=== PATIENT | female | born 1990 | race Caucasian/White ===

== ENCOUNTER 2018-05-11 04:06 | Inpatient (IN) | payer MEDICAID ==
[2018-05-11] VITALS (11 sets, daily range): BP systolic 91–120; BP diastolic 56–78
[~2018-05-11] VITALS: Ht 160 cm; Wt 70.5 kg
--- NOTE | 2018-05-11 04:51 | NUR ---
YOANNA MIRAMONTES presented to unit via ambulatory from ED, accompanied by s.o., with c/o INDUCTION. YOANNA MIRAMONTES weighed, gowned, voided, and to bed. EFHM and TOCO applied, VS taken. YOANNA MIRAMONTES oriented to bed controls, call light, TV, heat, and A/C controls.
--- OUTSIDE RECORDS SUMMARY | 2018-05-11 04:53 | XMS REPORT ---
Author Author CELESTINO MOLINA Organization [facility] Address [address] [place] [address] Care Team Providers Care Children'S Librarian Name Role Phone CELESTINO MOLINA Unavailable PROBLEMS Unknown Problems ALLERGIES No Information ENCOUNTERS Encounter Location Date Diagnosis [facility] [address] [facility] [id number] [address] Sep, [facility] [id number], [place] [address] Aug, High-risk sexual behavior Z72.51 ; Vaginal discharge N89.8 and Positive urine test Z32.01 [facility] [id number], [place] [address] Oct, Vaginal discharge N89.8 IMMUNIZATIONS No Known Immunizations SOCIAL HISTORY Never Assessed REASON FOR VISIT PLAN OF CARE VITAL SIGNS MEDICATIONS Unknown Medications RESULTS No Results PROCEDURES No Known procedures INSTRUCTIONS MEDICATIONS ADMINISTERED No Known Medications MEDICAL (GENERAL) HISTORY Type Description Date Surgical History lrt leg surgery
--- OUTSIDE RECORDS SUMMARY | 2018-05-11 04:54 | XMS REPORT ---
Author Author CELESTINO MOLINA Organization [facility] Address [address] [place] [address] Care Team Providers Care Risk Modeler Name Role Phone CELESTINO MOLINA Unavailable PROBLEMS Unknown Problems ALLERGIES Substance Reaction Event Type Date Status Penicillin G Sodium hives Drug Allergy Aug, Active ENCOUNTERS Encounter Location Date Diagnosis [facility] [address] [facility] [id number] [address] Sep, [facility] [address] [facility] [id number] [place] [address] Aug, High-risk sexual behavior Z72.51 ; Vaginal discharge N89.8 and Positive urine test Z32.01 [facility] [address] [facility] [id number] [place] [address] Oct, Vaginal discharge N89.8 IMMUNIZATIONS No Known Immunizations SOCIAL HISTORY Never Assessed REASON FOR VISIT Yeast infection, possible / wanting a test , patient would like to be check for Std's today _ _ rolly elizabeth PLAN OF CARE Activity Details Follow Up prn Reason: VITAL SIGNS Height 5'3" in 2017-09-09 Weight 133.0 lbs 2017-09-09 Temperature 98.0 degrees Fahrenheit 2017-09-09 Heart Rate 70 bpm 2017-09-09 Respiratory Rate 18 2017-09-09 BMI 23.56 kg/m2 2017-09-09 Blood pressure systolic 116 mmHg 2017-09-09 Blood pressure diastolic 70 mmHg 2017-09-09 MEDICATIONS Unknown Medications RESULTS No Results PROCEDURES Procedure Date Ordered Result Body Site Bacterial Vaginosis In House September 09, 2017 TRICHOMONAS ASSAY W/OPTIC September 09, 2017 No Charge September 09, 2017 CULTURE, BACTERIA, OTHER September 09, 2017 URINE TEST September 09, 2017 INSTRUCTIONS MEDICATIONS ADMINISTERED No Known Medications MEDICAL (GENERAL) HISTORY Type Description Date Surgical History lrt leg surgery
--- OUTSIDE RECORDS SUMMARY | 2018-05-11 04:54 | XMS REPORT ---
Author Author DOM CHICAS Organization [facility] Address [address] [place] [address] Care Team Providers Care Road Gang Supervisor Name Role Phone DOM CHICAS Unavailable PROBLEMS Unknown Problems ALLERGIES Substance Reaction Event Type Date Status Penicillin G Sodium hives Drug Allergy Oct, Active ENCOUNTERS Encounter Location Date Diagnosis [facility] [address] [facility] [id number] [address] Oct, Vaginal discharge N89.8 IMMUNIZATIONS No Known Immunizations SOCIAL HISTORY Never Assessed REASON FOR VISIT Vaginal discharge (yellow ) with itching x 1 month -- rolly elizabeth PLAN OF CARE Activity Details Follow Up prn, PCP Reason: VITAL SIGNS Height 5'3" in 2016-11-19 Weight 125.0 lbs 2016-11-19 Temperature 97.0 degrees Fahrenheit 2016-11-19 BMI 22.14 kg/m2 2016-11-19 Blood pressure systolic 120 mmHg 2016-11-19 Blood pressure diastolic 76 mmHg 2016-11-19 MEDICATIONS No Known Medications RESULTS Name Result Date Reference Range CULTURE, GENITAL 2016-11-19 Genital Culture, Routine Final report Result 1 TRICHOMONAS (IN HOUSE) 2016-11-19 TRICHOMONAS negative Control + Lot # [id number] Exp date 11/2017 BACTERIAL VAGINOSIS (IN HOUSE) 2016-11-19 RESULTS negative Control + Lot # [id number] Exp date 04/2017 GC/CHLAM PROBE (STATE) 2016-11-19 CHLAMYDIA negative GC negative PROCEDURES Procedure Date Ordered Result Body Site CULTURE, BACTERIA, OTHER Nov 19, 2016 TRICHOMONAS ASSAY W/OPTIC Nov 19, 2016 No Charge Nov 19, 2016 Bacterial Vaginosis In House Nov 19, 2016 INSTRUCTIONS MEDICATIONS ADMINISTERED No Known Medications MEDICAL (GENERAL) HISTORY Type Description Date Surgical History lrt leg surgery
[2018-05-11] MEDS ORDERED: D5 LR IV SOLUTION 1,000 ML IV SCH (05:00)
[2018-05-11] MEDS ORDERED: MINERAL OIL CONCENTRATE 99.9% 15 ML UDC TOP PRN (05:00)
[2018-05-11] MEDS ORDERED: PREN-142 PO (05:14)
[2018-05-11 05:22] LABS: BASOPHILS % (AUTO) 0 % (0-10); EOSINOPHILS # (AUTO) 0.2 10^3/uL (0.0-0.3); EOSINOPHILS % (AUTO) 2 % (0-10); HEMATOCRIT 35 % (35-52); LYMPHOCYTES # (AUTO) 1.8 X 10^3 (1.0-4.0); LYMPHOCYTES % (AUTO) 19 % (12-44); MEAN CORPUSCULAR HEMOGLOBIN 29 PG (25-34); MEAN CORPUSCULAR HGB CONC 34 G/DL (32-36); MEAN CORPUSCULAR VOLUME 85 FL (80-99); MEAN PLATELET VOLUME 10.1 FL (7.4-10.4); MONOCYTES # (AUTO) 0.6 X 10^3 (0.0-1.0); MONOCYTES % (AUTO) 7 % (0-12); NEUTROPHILS # (AUTO) 6.7 X 10^3 (1.8-7.8); NEUTROPHILS % (AUTO) 72 % (42-75); PLATELET COUNT 269 10^3/uL (130-400); RED CELL DISTRIBUTION WIDTH 13.5 % (10.0-14.5); WHITE BLOOD COUNT 9.3 10^3/uL (4.3-11.0)
[2018-05-11] MEDS ORDERED: ceFAZolin 2 GM IV Premixed 50 ML IV SCH (05:30)
[2018-05-11] MEDS ORDERED: OXYTOCIN/NORMAL SALINE 500 ML IV ONE (05:50)
[2018-05-11] MEDS ORDERED: OXYTOCIN/NORMAL SALINE 500 ML IV SCH ×2 (05:53→08:12)
--- NOTE | 2018-05-11 05:53 | NUR ---
Dr. العلي called per Sara Ramirez RN for IOL orders.
[2018-05-11] MEDS ORDERED: CLINDAMYCIN 900 MG/50 ML IVPB 50 ML IV SCH (06:00)
[2018-05-11] MEDS ORDERED: CATHETER FLUSH 10 ML SYR IV SCH ×2 (06:00→14:00)
--- NOTE | 2018-05-11 07:15 | NUR ---
report from production supervisor off shift RN. 0720 to bedside patient awake, lights on , s/o at bedside. reports pain with contractions. reviewed protocol for preparation for epidural placement.
--- NOTE | 2018-05-11 07:15 | History & Physical-OB ---
OB - Chief Complaint & HPI Date/Time Date of Admission: Date of Admission: May 11, 2018 at 04:49 Date seen by a Provider: May 11, 2018 Time Seen by a Provider: 07:05 Chief Complaint/History OB-Reason for Admission/Chief: Induction of Labor (Induction of labor at 39 weeks) Hx : 4 Hx Para: 3 Expected Date of Delivery: May 18, 2018 Gestational Age in Weeks: 39 Gestational Age in Days: 0 Allergies and Home Medications Allergies Coded Allergies: Penicillins (Verified Allergy, Unknown, HIVES, 05/11/18) Home Medications Vit No.124/Iron/FA 1 Each Tablet, 1 EACH PO DAILY, (Reported) Patient Home Medication List Home Medication List Reviewed: Yes OB - History Hx of Present Care: Yes Ultrasounds: Normal mid trimester US Obstetrical Complications: Other (GBS Positive) Medical Complications: None Delivery History Adverse Rxn to Tranfusion: No Patient Past Medical History See H & P Social History/Family History Alcohol Use: Denies Use Recreational Drug Use: Yes OB - Admission Exam Physical Exam Vitals: Vital Signs 05/11/18 06:33 Temp 98.2 Pulse 79 Resp 18 B/P (MAP) 106/68 (81) O2 Delivery Room Air HEENT: EOMI Heart: Rhythm Normal Lungs: Clear, Equal Abdomen: Non tender Extremities: Edema (Trace edema of lower extremities) Reflexes: Normal Cervical Dilatation: 4cm Effacement: Other (60%) Station: -2 Membranes: Intact Amniotic Fluid: Clear Heart Rate: 140's Accelerations: Accelerations Present Decelerations: Early Decelerations (rare) Short Term Variability: Present Peanut Butter Maker Variability: Average (6-25) Contractions on Admission: < 5 Minutes Apart Intensity: Moderate French Scoring Tool (Modified) Dilation (cm): 3-4cm (2) Effacement (%): 51-79% (2) Descent/Station: -2 (1) Cervix Consistency: Medium(1) Cervix Position: Middle/Mid-Position (1) Labs Laboratory Tests Test 05/11/18 05:10 Range/Units White Blood Count 9.3 4.3-11.0 10^3/uL Red Blood Count 4.13 L 4.35-5.85 10^6/uL Hemoglobin 12.0 11.5-16.0 G/DL Hematocrit 35 35-52 % Mean Corpuscular Volume 85 80-99 FL Mean Corpuscular Hemoglobin 29 25-34 PG Mean Corpuscular Hemoglobin Concent 34 32-36 G/DL Red Cell Distribution Width 13.5 10.0-14.5 % Platelet Count 269 130-400 10^3/uL Mean Platelet Volume 10.1 7.4-10.4 FL Neutrophils (%) (Auto) 72 42-75 % Lymphocytes (%) (Auto) 19 12-44 % Monocytes (%) (Auto) 7 0-12 % Eosinophils (%) (Auto) 2 0-10 % Basophils (%) (Auto) 0 0-10 % Neutrophils # (Auto) 6.7 1.8-7.8 X 10^3 Lymphocytes # (Auto) 1.8 1.0-4.0 X 10^3 Monocytes # (Auto) 0.6 0.0-1.0 X 10^3 Eosinophils # (Auto) 0.2 0.0-0.3 10^3/uL Basophils # (Auto) 0.0 0.0-0.1 10^3/uL OB - Assessment/Plan/Diagnosis Assessment Assessment: group B positive strep, induction of labor Admission Dx Intrauterine at 39 weeks GBS Positive Admission Status: Inpatient Order (span 2 midnights) Reason for Inpatient Admission: Pitocin Induction of Labor Plan Plan: Induction Induction Method: per Pitocin Protocol Other Plan Start Cleocin IV for GBS prophylaxis LIZZ SIDDIQUI DO May 11, 2018 07:15
[2018-05-11] MEDS ORDERED: LACTATED RINGERS 1,000 ML IV ONE (07:19)
[2018-05-11] MEDS ORDERED: FLU QUADRIvalent (5+ YOA) 2018-2019 (AFLURIA) 0.5 ML IM ONE (07:45)
[2018-05-11] MEDS ORDERED: fentaNYL INJECTION 100 MCG/2 ML AMP ONE (07:51)
[2018-05-11] MEDS ORDERED: BUPIVACAINE 0.25% 30 ML (SENSORCAINE) VIAL ONE (07:51)
[2018-05-11] MEDS ORDERED: HYDROcodone/APAP 5 MG/325 MG (LORTAB) TAB PO PRN (08:15)
[2018-05-11] MEDS ORDERED: BENZOCAINE/MENTHOL (DERMOPLAST) 56 ML CAN TP PRN (08:15)
[2018-05-11] MEDS ORDERED: WITCH HAZEL(TUCKS) 40 EA JAR TOP PRN (08:15)
[2018-05-11] MEDS ORDERED: MEASLES,MUMPS,RUBELLA 1 EA INJ SQ ONE (08:15)
[2018-05-11] MEDS ORDERED: DIBUCAINE (NUPERCAINAL) 1% OINT 30 GM TOP PRN (08:15)
[2018-05-11] MEDS ORDERED: TETANUS,DIPTH,PERTUSS P/F (BOOSTRIX) 0.5 ML VIAL IM ONE (08:15)
--- NOTE | 2018-05-11 08:20 | OB Labor & Delivery Record ---
L&D History Date of Service Date of Service: May 11, 2018 History Expected Date of Delivery: May 18, 2018 Gestational Age in Weeks: 39 Hx : 4 Hx Para: 3 Complications Events: Routine care Operative Indications (Cesarea: N/A-Vaginal Delivery Intrapartal Events: None L&D Stage1 Stage One Onset of Labor - Date: May 11, 2018 Monitors and Tracing Monitor Mode: External Heart Rate: 160 Monitor Accelerations: Uniform Station: -2 Snf Variability: Average (6-10) Short Term Variability: Present Presentation: Vertex Vital Signs VS - Last 72 Hours, by Label 05/11/18 06:33 Temp 98.2 Pulse 79 Resp 18 B/P (MAP) 106/68 (81) O2 Delivery Room Air Rupture of Membranes Spontaneous Ruture of Membrane: No Amniotic Membrane Rupture Time: 0655 Amniotic Membrane Fluid Desc.: Clear (Admited for induction by Dr. العلي, AROM and Pitocin was performed for augmentation) L&D Stage2 Stage Two Stage II Date: May 11, 2018 Monitors and Tracing Monitor Mode: Internal Heart Rate: 160 Monitor Accelerations: Uniform Monitor Decelerations: Variable Snf Variability: Average (6-10) Short Term Variability: Present Position: Right Occiput Anterior Presentation: Vertex Cord Descript/Complications Cord Vessel Description: 3 Vessels Delivery Type Delivery Method: Spontaneous Vaginal Anterior Shoulder: Right Episiotomy/Perineal Laceration Laceraction(s)/Extensions: No Degree (describe repair) I presented to the unit and asked by RN for coverage of a rapidly progressing Stage 2 of labor induction by Dr. العلي. Upon entering the room the patient had no analgesia and was unintentionally pushing. She was noted to be , so I prepared for delivery. Delivered head over intact perineum. Nuchal cord reduced x 1. Right anterior shoulder delivered with gentle downward traction of the shoulder, and posterior shoulder delivered with upward motion. Infant taken out onto mothers abdomen where it was noted to be vigorous responsive and crying. Condition of Infant Delivery 1 minute Comment: 9 5 minute Comment: 9 Condition of Condition of Infant: Living Exam: Gross Congenital Abnorm. 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
[2018-05-11] MEDS: IBUPROFEN 600 MG (MOTRIN) TAB PO SCH ×3 (08:40→23:56)
--- NOTE | 2018-05-11 08:40 | Progress Note-Standard ---
Standard Progress Note Progress Notes/Assess & Plan Date Seen by a Provider: May 11, 2018 Time Seen by a Provider: 08:30 Progress/Assessment & Plan I was called at 08:01 saying that Ms. Cruz was 8 cm, at 08:08, I was called again stating that Ms. Cruz had delivered. She was delivered by Dr. Soto ( physician workers compensation adjuster). Ms. Tineo was a multiparous patient that delivered precipitously. I discussed the case with Dr. Soto--no lacerations or problems. Final Diagnosis IUP at 39 weeks GBS Positive Precipitous Delivery LIZZ SIDDIQUI DO May 11, 2018 08:40
--- NOTE | 2018-05-11 09:20 | NUR ---
fundal massage moderate flow with massage. no clots expressed, u/0 urine noted wiht massage. new pad and underwear to perineum. up to bathroom. denies dizziness or lightheadedness.
--- NOTE | 2018-05-11 09:25 | NUR ---
reviewed pericare and supplies demonstrated proper understanding .
--- NOTE | 2018-05-11 09:35 | NUR ---
ambulated with family and staff to room 311. infant in open crib. denies dizziness or lightheadedness. ambulated with family to Aunt's room on 3rd floor.
--- NOTE | 2018-05-11 11:40 | NUR ---
resting quietly in bed. voices no concerns or needs at this time.
[2018-05-11] MEDS ORDERED: ceFAZolin INJECTION 1,000 MG in WATER (STERILE) FOR INJECTION 10 ML IV SCH (14:00)
--- NOTE | 2018-05-11 14:20 | NUR ---
vitals taken. sitting up changing infants diaper .vitals taken. fresh ice water placed to bedside. no clots light to moderate flow. denies or concerns. will continue to monitor.
--- NOTE | 2018-05-11 15:55 | NUR ---
resting in bed holding infant with s/o at side . denies need. temp taken 98.6 denies need or concern.
[2018-05-11] MEDS: DOCUSATE SODIUM 100 MG (COLACE) CAP PO SCH ×2 (20:25→20:35)
[2018-05-11] MEDS: PRENATAL VITAMIN 1 EA TAB PO SCH (20:25)
[2018-05-11] MEDS: FERROUS SULF 325 MG (IRON) TAB PO SCH (20:27)
--- NOTE | 2018-05-11 20:30 | NUR ---
PM shift assessment completed,VSS, see interventions for further documentation. Plan of care reviewed with patient. Patient verbalizes understanding and questions answered. Call light within reach. Will continue to monitor.
[2018-05-12] MEDS: IBUPROFEN 600 MG (MOTRIN) TAB PO SCH ×3 (04:23→11:31)
[2018-05-12 05:35] VITALS: BP 99/58
[2018-05-12] MEDS ORDERED: ACHD5005 PO (06:21)
[2018-05-12] MEDS ORDERED: DOCU100C37 PO (06:21)
[2018-05-12] MEDS ORDERED: IBUP-844 PO (06:21)
[2018-05-12 06:25] LABS: BASOPHILS % (AUTO) 0 % (0-10); EOSINOPHILS # (AUTO) 0.2 10^3/uL (0.0-0.3); EOSINOPHILS % (AUTO) 2 % (0-10); HEMATOCRIT 31 % (35-52); HEMOGLOBIN 10.2 G/DL (11.5-16.0); LYMPHOCYTES # (AUTO) 1.9 X 10^3 (1.0-4.0); LYMPHOCYTES % (AUTO) 17 % (12-44); MEAN CORPUSCULAR HEMOGLOBIN 29 PG (25-34); MEAN CORPUSCULAR HGB CONC 33 G/DL (32-36); MEAN CORPUSCULAR VOLUME 87 FL (80-99); MEAN PLATELET VOLUME 9.9 FL (7.4-10.4); MONOCYTES # (AUTO) 0.7 X 10^3 (0.0-1.0); MONOCYTES % (AUTO) 6 % (0-12); NEUTROPHILS # (AUTO) 8.4 X 10^3 (1.8-7.8); NEUTROPHILS % (AUTO) 75 % (42-75); PLATELET COUNT 208 10^3/uL (130-400); RED CELL DISTRIBUTION WIDTH 13.4 % (10.0-14.5); WHITE BLOOD COUNT 11.2 10^3/uL (4.3-11.0)
--- NOTE | 2018-05-12 06:30 | Discharge Inst-Women's Service ---
Discharge Inst-Women's Serv Depart Medication/Instructions New, Converted or Re-Newed RX: RX Given to Pt/Family Instructions Pelvic rest x 6 weeks No heavy lifting or strenuous activities Return to office in 6 weeks. Call with problems or questions Final Diagnosis Intrauterine at 39 weeks GBS Positive Precipitous Delivery Consults/Follow Up Additional Follow Up: No Activity Activity: Activity as Tolerated Driving Instructions: You May Drive NO SMOKING: NO SMOKING Nothing Inside Vagina: No Douching, No Tibes, No Tampons Diet Discharge Diet: No Restrictions Symptoms to Report to : Bleeding Excessive, Pain Increased, Fever Over 101 Degrees F, Vaginal Bleeding Increase, Vaginal Discharge Foul For Any Problems or Questions: Contact Your Physician Skin/Wound Care Bathing Instructions: LIZZ Ring DO May 12, 2018 06:30
[2018-05-12 08:00] VITALS: BP 100/58
--- NOTE | 2018-05-12 08:00 | NUR ---
A.M. ASSESSMENT COMPLETED. VSS. CARING FOR IN ROOM.
[2018-05-12] MEDS: PRENATAL VITAMIN 1 EA TAB PO SCH (09:48)
[2018-05-12] MEDS: DOCUSATE SODIUM 100 MG (COLACE) CAP PO SCH (09:49)
[2018-05-12] MEDS: FERROUS SULF 325 MG (IRON) TAB PO SCH (09:49)
--- NOTE | 2018-05-12 11:00 | NUR ---
PREPARING FOR DISCHARGE. S.O. AT BEDSIDE.
[2018-05-12] MEDS ORDERED: MEASLES,MUMPS,RUBELLA 1 EA INJ ONE (11:03)
[2018-05-12] MEDS ORDERED: TETANUS,DIPTH,PERTUSS P/F (BOOSTRIX) 0.5 ML VIAL IM ONE (11:04)
--- NOTE | 2018-05-12 11:24 | NUR ---
TDAP VACCINE AND MMR VACCINE GIVEN. SEE EMAR
[2018-05-12 11:59] VITALS: BP 124/62
[2018-05-12 12:50] VITALS: BP 124/62
--- NOTE | 2018-05-12 12:50 | NUR ---
DISCHARGE INSTRUCTIONS REVIEWED WITH COPY TO PT. RXS GIVEN. STATES UNDERSTANDING OF ALL INSTRUCTIONS AND NEED TO F/U SCHEDULED AND NEEDED. DISMISSED AMB FROM WS WITH INFANT IN STABLE CONDITION TO FAMILY CAR ACC BY SPOUSE AND KORY HARRELL.
== END 2018-05-12 12:50 | disposition home or self-care (01) | DRG 807 ==
LOC: LDRP 04:49
PROVIDERS: ADMIT Obstetrics & Gynecology; ATTEND Obstetrics & Gynecology
PROC: 10E0XZZ Delivery of Products of Conception, External Approach (ICD-10-PCS; principal; 2018-05-11)
DX: O62.3 Precipitate labor (principal); O69.81X0 Labor and delivery complicated by cord around neck, without compression, not applicable or unspecified; O99.820 Streptococcus B carrier state complicating pregnancy; Z3A.39 39 weeks gestation of pregnancy; Z37.0 Single live birth
CPT/HCPCS: 36415; 85025; 86850; 86900; 86901; 90707; 90715

== ENCOUNTER 2019-12-19 10:09 | Outpatient (CLI) | payer MEDICAID ==
[~2019-12-19] VITALS: Ht 162.6 cm; Wt 67.0 kg
[~2019-12-19 10:09] MED LIST: ACHD5005 PO; DOCU100C37 PO; IBUP-844 PO; PREN-142 PO
[2019-12-19 10:13] VITALS: BP 114/63
--- NOTE | 2019-12-19 10:13 | NUR ---
YOANNA MIRAMONTES presented to unit from ED, accompanied by SELF , with c/o PRESSURE;BACK PAIN. YOANNA MIRAMONTES weighed, gowned, voided, and to bed. EFHM and TOCO applied, VS taken. YOANNA MIRAMONTES oriented to bed controls, call light, TV, heat, and A/C controls.
[2019-12-19 10:23] VITALS: BP 114/63
--- NOTE | 2019-12-19 10:35 | NUR ---
SVE PER THIS RN AND Brigid TARIQ RN. 1 CM EXT/CLOSED INT. THICK.
--- NOTE | 2019-12-19 10:43 | NUR ---
DR. PASCAL NOTIFIED OF PT'S ARRIVAL, COMPLAINTS, AND EXAM. NEW ORDERS RECEIVED.
--- NOTE | 2019-12-19 11:02 | NUR ---
DISCHARGE INSTRUCTIONS AND MEDICATIONS REVIEWED WITH PT BOTH WRITTEN AND VERBALLY. PT VERBALIZES UNDERSTANDING AND QUESTIONS ANSWERED.
--- NOTE | 2019-12-19 11:05 | NUR ---
PT DISCHARGED AT THIS TIME. AMBULATED FROM THE UNIT WITHOUT ANY SIGNS OR SYMPTOMS OF DISTRESS NOTED.
--- NOTE | 2019-12-20 08:15 | Physician Query-Final Dx ---
DOROTHY HINSON 12/20/19 0815: Clinic Account Progress/Dx Physician Query: Please give diagnosis Please include # weeks gestation Date of Service Dec 19, 2019 at 10:09 KONG PASCAL MD 12/20/19 1016: Clinic Account Progress/Dx DIAGNOSIS: Diagnosis false labor at 34 weeks gestation DOROTHY HINSON Dec 20, 2019 08:15 KONG PASCAL MD Dec 20, 2019 10:16
== END 2019-12-19 11:05 ==
LOC: WSo 10:09 → LDRP 10:10 → WSo 11:05
PROVIDERS: ATTEND Obstetrics & Gynecology
DX: O47.03 False labor before 37 completed weeks of gestation, third trimester (principal); Z3A.34 34 weeks gestation of pregnancy

== ENCOUNTER → 2020-02-01 | Outpatient (CLI) | payer MEDICAID ==
[2020-02-01 09:38] LABS: HEMATOCRIT 37 % (35-52); MEAN CORPUSCULAR HEMOGLOBIN 28 PG (25-34); MEAN CORPUSCULAR HGB CONC 32 G/DL (32-36); MEAN CORPUSCULAR VOLUME 86 FL (80-99); PLATELET COUNT 318 10^3/uL (130-400); WHITE BLOOD COUNT 7.1 10^3/uL (4.3-11.0)
[2020-02-01 09:39] LABS: BASOPHILS # (AUTO) 0.1 10^3/uL (0.0-0.1); BASOPHILS % (AUTO) 1 % (0-10); EOSINOPHILS # (AUTO) 0.2 10^3/uL (0.0-0.3); EOSINOPHILS % (AUTO) 3 % (0-10); LYMPHOCYTES # (AUTO) 2.5 X 10^3 (1.0-4.0); LYMPHOCYTES % (AUTO) 36 % (12-44); MEAN PLATELET VOLUME 9.4 FL (7.4-10.4); MONOCYTES # (AUTO) 0.6 X 10^3 (0.0-1.0); MONOCYTES % (AUTO) 8 % (0-12); NEUTROPHILS # (AUTO) 3.6 X 10^3 (1.8-7.8); NEUTROPHILS % (AUTO) 51 % (42-75)
[2020-02-01 09:56] LABS: ALANINE AMINOTRANSFERASE 13 U/L (0-55); ALKALINE PHOSPHATASE 78 U/L (40-136); BILIRUBIN,TOTAL 0.2 MG/DL (0.1-1.0); BUN/CREATININE RATIO 14; CALCIUM 8.6 MG/DL (8.5-10.1); CARBON DIOXIDE 24 MMOL/L (21-32); CHLORIDE 108 MMOL/L (98-107); CREATININE SERUM 0.73 MG/DL (0.60-1.30); GFR ESTIMATED > 60; GLUCOSE 79 MG/DL (70-105); POTASSIUM 4.3 MMOL/L (3.6-5.0); SODIUM 143 MMOL/L (135-145)
[2020-02-01 09:57] LABS: ALBUMIN 3.6 GM/DL (3.2-4.5); TOTAL PROTEIN 6.3 GM/DL (6.4-8.2)
--- NOTE | 2020-02-01 10:51 | Diagnostic Imaging Report ---
PATIENT HISTORY: Left-sided chest wall pain. TECHNIQUE: Two views of the chest. COMPARISON: None. FINDINGS: The lung volumes are normal. No focal consolidation is seen. No large pleural effusion or pneumothorax is seen. The cardiomediastinal silhouette is normal in size and contour. No acute osseous abnormality is seen. IMPRESSION: No acute pulmonary abnormality seen. Dictated by: Dictated on workstation # [id number]
== END ==
LOC: LAB FS 09:20
PROVIDERS: ATTEND Nurse Practitioner Family
DX: R07.89 Other chest pain (principal); R00.1 Bradycardia, unspecified
CPT/HCPCS: 36415; 71046; 80053; 85025